=== PATIENT | male | born 1975 | race Caucasian/White ===

== ENCOUNTER 2018-06-16 05:36 | Day surgery (SDC) | payer BC, OTHER ==
[2018-06-16] MEDS ORDERED: Ketamine HCl 50 MG/ML IV ONE (05:37)
[2018-06-16] MEDS ORDERED: DIPRIVAN 200 MG/20 ML IV ONE (05:37)
[2018-06-16] MEDS ORDERED: Lactated Ringers 1,000 ML IV SCH (07:00)
[2018-06-16 08:13] VITALS: O2SAT 98
[2018-06-16 08:37] VITALS: BP 145/87; PULSE 63
--- NOTE | 2018-06-16 11:40 | OP ---
SURGERY DATE/TIME: 06/16/2018 0731 PREOPERATIVE DIAGNOSIS: Father with colon cancer. POSTOPERATIVE DIAGNOSIS: Normal colon. PROCEDURE: Colonoscopy. SURGEON: Dr. Adams. ANESTHESIA: MAC. Medications given by anesthesia department. HISTORY: The patient is a 43 year-old white male patient presenting now for reason that his father had of colon cancer. He is here for screening colonoscopy. He was appraised of the risks of the procedure including the risk of perforation, phlebitis, untoward reaction to medication, bleeding and missed lesions. The patient verbalized his understanding and desired to have the procedure performed. DESCRIPTION OF PROCEDURE: The patient was given the medications by the anesthesia department. He had continuous pulse oximetry, ECG monitoring, intermittent blood pressure monitoring and tidal CO2 monitoring during the examination. He was placed in the left lateral decubitus position. A digital rectal examination was performed and revealed normal anal sphincter tone and no masses and normal prostate. The flexible Olympus pediatric colonoscope was used to intubate the rectum. A view of the colon was developed sequentially to the cecum. Upon insertion and withdrawal, including a retroflex view in the rectum, no mucosal lesions were encountered. The scope was removed from the patient who tolerated the procedure well and was sent back to OP recovery in good condition. The prep was noted to be fair to good.
== END 2018-06-16 08:45 | disposition home or self-care (01) ==
LOC: SDC 05:36
PROVIDERS: ATTEND Family Medicine
DX: Z12.11 Encounter for screening for malignant neoplasm of colon (principal); Z80.0 Family history of malignant neoplasm of digestive organs
CPT/HCPCS: 94250; J2704

== ENCOUNTER 2020-06-02 08:15 | Day surgery (SDC) | payer BC ==
--- NOTE | 2020-05-27 10:07 | HP ---
DATE OF SURGERY: 06/02/2020 HISTORY OF PRESENT ILLNESS: The patient presented to the office with right upper quadrant pain. It has been going on and off for some time, aggravated by certain foods. He has had an ultrasound that showed that he does have a contracted gallbladder with cholelithiasis and some borderline hepatomegaly. PAST MEDICAL HISTORY: Diabetes. Discoid lupus. PAST SURGICAL HISTORY: None reported. ALLERGIES: NKDA. MEDICATIONS: Metformin, Pravastatin, amlodipine. FAMILY HISTORY: Colon cancer, heart disease. SOCIAL HISTORY: Negative. REVIEW OF SYSTEMS: CONSTITUTIONAL: Denies fever or chills. CHEST: Denies shortness of breath. CVS: Denies chest pain. ABDOMEN: Reports right upper quadrant pain. Occasional nausea and vomiting. Denies diarrhea, constipation or rectal bleeding. : Denies dysuria or hematuria. PHYSICAL EXAMINATION: GENERAL: No acute distress. HEENT: No jaundice. Oral mucosa moist. NECK: No JVD. CHEST: Nonlabored. No shortness of breath. CVS: Regular rate and rhythm. ABDOMEN: Soft, tender to palpation right upper quadrant. EXTREMITIES: No edema. NEUROLOGIC: Alert. PSYCHIATRIC: Appropriate. IMPRESSION: Symptomatic cholelithiasis. PLAN: Laparoscopic cholecystectomy with Dr. Yassine Padilla. As dictated by Reva Sanz NP.
[~2020-06-02 08:15] MED LIST: Lactated Ringers 1,000 ML IV ONE; Lactated Ringers 1,000 ML IV SCH; MEFOXIN 2 GM PREMIX** 2 GM/50 ML ML IV ONE; Sensorcaine 0.25% 10 ML ONE
[2020-06-02] MEDS ORDERED: MEFOXIN 2 GM PREMIX** 2 GM/50 ML ML IV ONE (09:20)
[2020-06-02] MEDS ORDERED: Zofran 4 MG/2 ML VIAL ONE (09:21)
[2020-06-02] MEDS ORDERED: Decadron 4 MG INJ ONE (09:21)
[2020-06-02] MEDS ORDERED: DIPRIVAN 200 MG/20 ML IV ONE (09:21)
[2020-06-02] MEDS ORDERED: BRIDION 200MG/2ML IV ONE (09:21)
[2020-06-02] MEDS ORDERED: TORAdol 30 mg Injection ONE (09:21)
[2020-06-02] MEDS ORDERED: Xylocaine-Mpf 2% 5 Ml Vial ONE (09:21)
[2020-06-02] MEDS ORDERED: Zemuron 100 MG/10 ML ONE (09:21)
[2020-06-02] MEDS ORDERED: SUBLIMAZE 250 MCG/5 ML ONE (09:22)
[2020-06-02] MEDS ORDERED: Quelicin Fliptop 200 MG/10 ML ONE (09:27)
[2020-06-02] MEDS ORDERED: APRESOLINE 20 MG/ML INJ ONE (09:55)
--- NOTE | 2020-06-02 09:56 | PCM.DCORD ---
- Discharge Disposition: Home, Self-Care Condition: Stable Prescriptions: New Hydrocodone/APAP 5-325 Tab^^^ [[place] 5-325 Tablet^^^] 1 each PO Q4HPRN PRN #20 tablet MDD 6 PRN Reason: Pain No Action Metformin HCl [Fortamet] 1,000 mg PO BID Amlodipine Besylate 5 mg [Norvasc 5 mg] 5 mg PO DAILY Pravastatin Sodium 20 mg PO DAILY Additional Instructions: No lifting, pushing or pulling over 5 pounds, no soaking in tub, swimming, notify Dr if you have redness, warmth or swelling at the incision, or increasing pain or fever. Follow up with: CLAIR BLOUNT [Primary Care Provider] - 1 Week PARTH ALFARO [ACTIVE STAFF] - 1 Week
[2020-06-02] MEDS ORDERED: SUBLIMAZE 100 MCG/2 ML ONE ×2 (10:23→11:25)
[2020-06-02] MEDS ORDERED: LOPRESSOR 5 MG/5 ML INJECTION IV ONE (10:32)
[2020-06-02] MEDS ORDERED: Sensorcaine 0.25% 10 ML ONE (10:41)
--- NOTE | 2020-06-02 10:46 | OP ---
SURGERY DATE/TIME: 06/02/2020 0927 PREOPERATIVE DIAGNOSIS: Symptomatic cholelithiasis. POSTOPERATIVE DIAGNOSIS: Symptomatic cholelithiasis with severely contracted hydrops of the gallbladder. PROCEDURE: Laparoscopic cholecystectomy. SURGEON: Dr. Yassine Padilla. ANESTHESIA: General. COMPLICATIONS: None. CONDITION: Stable. INDICATIONS: A patient requiring cholecystectomy. DESCRIPTION OF PROCEDURE AND FINDINGS: Taken to surgery. General anesthetic, routine prep and drape. Veress needle inserted. Opening pressure of 1, insufflating pressure 14. Four - 5's. Good visualization. Gallbladder contracted. It was taken down in a fundal port approach predominantly and the gallbladder was able to be lifted up on the infundibulum and posteriorly this was a little smoother and nicer and could be seen. A little bit of subcu tissue was taken. Cystic duct was clearly defined, triply clipped medial, none laterally. It was transected. It was a 1 mm bilious connection with gallbladder. Cystic artery triply clipped. Gallbladder dissection completed which did not lack much at this moment. Field was totally dry. It was placed in a condom bag and removed. Umbilical port site closed with 2-0 Vicryl. Skin closed with 4-0 Vicryl and Steri-Strips. The patient tolerated the procedure satisfactorily.
[2020-06-02] MEDS ORDERED: DILAUDID 2 MG INJECTION ONE (11:49)
[2020-06-02] MEDS ORDERED: Lactated Ringers 1,000 ML IV ONE (12:41)
[2020-06-02 14:01] VITALS: BP 136/71; PULSE 80; O2SAT 93
== END 2020-06-02 14:00 | disposition home or self-care (01) ==
LOC: SDC 08:15
PROVIDERS: ATTEND Surgery
DX: K80.20 Calculus of gallbladder without cholecystitis without obstruction (principal); K82.1 Hydrops of gallbladder; E11.9 Type 2 diabetes mellitus without complications; L93.0 Discoid lupus erythematosus; Z79.899 Other long term (current) drug therapy
CPT/HCPCS: J0330; J0360; J0694; J1100; J1170; J1885; J2405; J2704; J3010